=== PATIENT | female | born 1980 | race Caucasian/White ===

== ENCOUNTER → 2023-02-02 | Outpatient (CLI) | payer BC ==
--- NOTE | 2023-02-02 13:05 | US ---
EXAMINATION TYPE: US abdomen complete DATE OF EXAM: 02/02/2023 COMPARISON: NONE CLINICAL INDICATION: Female, 42 years old with history of R10.12 LUQ PAIN; LUQ pain x 2 days. TECHNIQUE: Multiple sonographic images of the abdomen are obtained. FINDINGS: EXAM MEASUREMENTS: Liver Length: 17.1 cm Gallbladder Wall: 0.16 cm CBD: 0.49 cm Spleen: 11.3 cm Right Kidney: 13.0 x 5.9 x 3.8 cm Left Kidney: 11.6 x 5.0 x 5.4 cm LOTUS NOTES DEVELOPER NOTES: Exam is limited due to overlying bowel gas. Pancreas: Tail was not well seen. Liver: Measures upper limits. Appears coarse in echotexture. Gallbladder: Slightly limited, appears partially contracted, no obvious abnormalities seen. Evidence for sonographic Martinez's sign: No CBD: Appears wnl Spleen:Appears wnl Right Kidney: Enlarged. Borders appear slightly irregular? Left Kidney: No hydronephrosis or masses seen Upper IVC: Appears wnl Abd Aorta: Appears wnl IMPRESSION: 1. Coarse echotexture throughout the liver may reflect underlying hepatic steatosis.
== END | disposition home or self-care (01) ==
LOC: RADUSWWP 12:19
PROVIDERS: ATTEND Family Medicine
DX: R10.12 Left upper quadrant pain (principal)
CPT/HCPCS: 76700

== ENCOUNTER 2023-03-22 09:20 | Day surgery (SDC) | payer BC ==
[~2023-03-22 09:20] MED LIST: LACTATED RINGERS 1,000 ML IV SCH; LIDOCAINE 1% (10MG/ML) FOR IV START INTRADERMA PRN
[2023-03-22 10:15] VITALS: TEMP 97.5
[2023-03-22] MEDS ORDERED: LIDOCAINE 1% INJ 10MG/ML (20 ML MDV) ONE (10:46)
[2023-03-22] MEDS ORDERED: PROPOFOL 10 MG/ML 20 ML VIAL IV ONE (10:46)
--- NOTE | 2023-03-22 10:55 | P.PCN ---
Date of Procedure: 03/22/23 Procedure(s) Performed: BRIEF HISTORY: Patient is a 42-year-old, pleasant, white female scheduled for an upper endoscopy as a part of evaluation of chronic epigastric pain for the last 1 month duration. He describes the pain mostly in the epigastric area was with some nausea but no emesis. Denies any heartburn. She was started on omeprazole 20 mg twice daily with some help. Recent NSAID use and no prior history of peptic ulcer disease. PROCEDURE PERFORMED: Esophagogastroduodenoscopy with biopsy. PREOPERATIVE DIAGNOSIS: Chronic epigastric pain of one month duration. IV sedation per anesthesia. PROCEDURE: After informed consent was obtained, the patient was brought into the endoscopy unit. IV sedation was administered by Anesthesia under continuous monitoring. Initially the Olympus GIF-140 video endoscope was inserted into the mouth. Esophagus intubated without any difficulty. It was gradually advanced into the stomach and duodenum and carefully examined. The bulb and the second part of the duodenum appeared normal. The scope at this time was withdrawn to the stomach, adequately insufflated with air, and upon careful examination, mucosa of the antrum, had mild patchy areas of erythema mostly in the prepyloric area and this was biopsied. No ulcerations noted. Mucosa of the body, cardia and the fundus appeared normal. The scope was then withdrawn into the esophagus. The GE junction was located at 39 cm from the incisors. It appeared slightly irregular. The esophagus appeared normal. There were no erosions or ulcerations seen , biopsies were done from the distal esophagus and the patient tolerated the procedure well. IMPRESSION: 1. Mild antral gastritis. 2. No evidence of esophagitis or peptic ulcer disease. RECOMMENDATIONS: The findings of this examination were discussed with the patient as well as a family. She was advised to follow with the biopsy results. In the meantime she will continue with omeprazole 20 mg twice daily and follow antireflux measures..
[2023-03-22 11:05] VITALS: RESP 18
[2023-03-22 11:30] VITALS: BP 150/90; PULSE 56
== END 2023-03-22 11:32 | disposition home or self-care (01) ==
LOC: ORWHC2ENDO 09:20
PROVIDERS: ATTEND Internal Medicine Gastroenterology
DX: K29.50 Unspecified chronic gastritis without bleeding (principal); K21.00 Gastro-esophageal reflux disease with esophagitis, without bleeding; G89.29 Other chronic pain; F17.210 Nicotine dependence, cigarettes, uncomplicated; F98.8 Other specified behavioral and emotional disorders with onset usually occurring in childhood and adolescence; F12.90 Cannabis use, unspecified, uncomplicated; Z79.899 Other long term (current) drug therapy
CPT/HCPCS: 81025; 88305; 43239; J2001; J2704